=== PATIENT | male | born 1945 | race Caucasian/White ===

== ENCOUNTER 2022-01-09 14:40 | Observation (INO) | payer OTHER ==
[~2022-01-09] VITALS: Ht 177.8 cm; Wt 124.4 kg
[2022-01-09 15:47] LABS: BASOPHILS ABSOLUTE AUTO 0.04 K/mm3 (0.00-0.23); BASOPHILS PERCENT AUTO 0 % (0-2); EOSINOPHILS ABSOLUTE AUTO 0.17 K/mm3 (0.00-0.68); EOSINOPHILS PERCENT AUTO 1 % (0-6); Hematocrit 44.5 % (37.0-53.0); Hemoglobin 14.9 g/dL (13.5-17.5); IMMATURE GRAN ABSOLUTE AUTO 0.06 K/mm3 (0.00-0.10); IMMATURE GRAN PERCENT AUTO 1 % (0-1); LYMPHOCYTES ABSOLUTE AUTO 1.08 K/mm3 (0.84-5.20); LYMPHOCYTES PERCENT AUTO 8 % (21-46); MONOCYTES ABSOLUTE AUTO 0.74 K/mm3 (0.16-1.47); MONOCYTES PERCENT AUTO 6 % (4-13); Mean Corpuscular HGB 28.9 pg (26.0-34.0); Mean Corpuscular HGB Conc 33.5 g/dL (31.5-36.5); Mean Corpuscular Volume 86 fL (80-100); Mean Platelet Volume 10.1 fL (9.1-12.4); NEUTROPHILS ABSOLUTE AUTO 11.12 K/mm3 (1.96-9.15); NEUTROPHILS PERCENT AUTO 84 % (41-73); Platelet Count 179 K/mm3 (150-400); RDW Coefficient Variation 13.2 % (11.7-14.2); RDW Standard Deviation 41.3 fL (35.1-46.3); Red Blood Cell Count 5.16 M/mm3 (4.30-5.90); White Blood Cell Count 13.21 K/mm3 (4.00-11.30)
[2022-01-09 16:10] LABS: Albumin, Blood 3.6 g/dL (3.4-5.0); Bilirubin, Total 0.4 mg/dL (0.1-1.0); Bun/Creatinine Ratio 23.5 (12.0-20.0); Calcium, Blood 9.2 mg/dL (8.5-10.1); Creatinine, Blood 0.72 mg/dL (0.60-1.20); Globulin, Blood 3.6 g/dL (2.2-4.0); Potassium, Blood 4.5 mmol/L (3.5-5.5); Total Protein, Blood 7.2 g/dL (6.4-8.2)
[2022-01-09 16:18] LABS: CHOL/HDL RATIO 3.4; Cholesterol 165 mg/dL (50-200); HDL Cholesterol 48 mg/dL (>39); LDL/HDL RATIO 2.1; Low Density Lipoprotein Chol 102 mg/dL (0-110); Triglycerides 73 mg/dL (30-160); Very Low Density Lipoprot Chol 14 mg/dL (6-32)
--- NOTE | 2022-01-09 17:35 | NUR ---
Pt arrived to [address] via gurney, able to stand and tx to bed indep, he denies the chest pressure at this time, but states he is sob, currently on 3 liters 02 via n/c, resp even and unlabore, no cough noted, hrr, murumur noted, tele in place running sr, no edema noted, ppp+1, cap refill <3sec, vs stable, afebrile, iv site is s.l. clear and patent, btx4, abd round soft nontender, voids without diff, skin c/w/d, majero, abril, oriented to room layout and call system, call light in reach.
[2022-01-10 05:22] LABS: BASOPHILS ABSOLUTE AUTO 0.05 K/mm3 (0.00-0.23); BASOPHILS PERCENT AUTO 0 % (0-2); EOSINOPHILS ABSOLUTE AUTO 0.08 K/mm3 (0.00-0.68); EOSINOPHILS PERCENT AUTO 1 % (0-6); Hematocrit 43.6 % (37.0-53.0); IMMATURE GRAN ABSOLUTE AUTO 0.04 K/mm3 (0.00-0.10); IMMATURE GRAN PERCENT AUTO 0 % (0-1); LYMPHOCYTES ABSOLUTE AUTO 1.55 K/mm3 (0.84-5.20); LYMPHOCYTES PERCENT AUTO 13 % (21-46); MONOCYTES ABSOLUTE AUTO 1.06 K/mm3 (0.16-1.47); MONOCYTES PERCENT AUTO 9 % (4-13); Mean Corpuscular HGB 28.3 pg (26.0-34.0); Mean Corpuscular HGB Conc 32.1 g/dL (31.5-36.5); Mean Corpuscular Volume 88 fL (80-100); Mean Platelet Volume 10.1 fL (9.1-12.4); NEUTROPHILS ABSOLUTE AUTO 8.83 K/mm3 (1.96-9.15); NEUTROPHILS PERCENT AUTO 76 % (41-73); Platelet Count 171 K/mm3 (150-400); RDW Coefficient Variation 13.2 % (11.7-14.2); RDW Standard Deviation 42.6 fL (35.1-46.3); Red Blood Cell Count 4.94 M/mm3 (4.30-5.90); White Blood Cell Count 11.61 K/mm3 (4.00-11.30)
[2022-01-10 05:45] LABS: Albumin, Blood 3.3 g/dL (3.4-5.0); Albumin/Globulin Ratio 0.9 (0.8-1.8); Bilirubin, Total 0.9 mg/dL (0.1-1.0); Bun/Creatinine Ratio 20.2 (12.0-20.0); Calcium, Blood 8.7 mg/dL (8.5-10.1); Creatinine, Blood 0.64 mg/dL (0.60-1.20); Globulin, Blood 3.5 g/dL (2.2-4.0); Magnesium, Blood 1.7 mg/dL (1.6-2.4); Potassium, Blood 3.8 mmol/L (3.5-5.5); Total Protein, Blood 6.8 g/dL (6.4-8.2)
--- NOTE | 2022-01-10 07:40 | NUR ---
PT TROPONIN 134 FROM 141, PT TO HAVE TROPONIN WITH MORNING LABS. 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 PT ALSO REPORTED THAT CP HAD COMPLETELY RESOLVED AND HIS SOB HAD IMPROVED. STATES IT IS WORSE WITH ACITIVITY. PT HAD 1 DOSE OF LABETOLOL AND AFTERWARDS BP GREATLY IMPROVED. CT NEGATIVE FOR PE AND PT GREATLY RELIVED. PT OFF OXYGEN SATS 93-95. NO NEW COMPLAINS OVERNIGHT.
--- NOTE | 2022-01-10 08:18 | NUR ---
pt sitting on the side of the bed awake a/ox3, pleasant and cooperative with care, denies pain, states he didn't sleep as the bed isn't comfortable, breathing easier, on r/a this am, denies sob, lungs are clear t/o, resp even and unlabored, no cough noted, hrr, tele in place running sr per montior, see strip, loud murmur noted, no edema noted, ppp +1, cap refill <3sec, vs stable, afebrile, iv site to lac s.l. site is clear and patent, btx4, abd round soft nontender, voids without diff, skin c/w/d, maew, abril, call light in reach.
[2022-01-10] MEDS ORDERED: ZESTRIL40 M1 PO (10:09)
[2022-01-10] MEDS ORDERED: METF500 PO (10:10)
[2022-01-10] MEDS ORDERED: METO25 PO (10:10)
[2022-01-10] MEDS ORDERED: AMLO5 PO (14:37)
--- NOTE | 2022-01-10 15:15 | NUR ---
pt has been discharged to home, went over discharge instructions with him, he verbalized understanding, encouraged him to purchase of b/p cuff and take his pressure every morning before meds, and to take his blood glucose daily, and change his diet, iv removed intact, left via ambulation with in attendence and all his belongings.
== END 2022-01-10 14:59 | disposition home or self-care (01) ==
LOC: ER 14:40 → MEDS 14:41
PROVIDERS: Physician Assistant; ADMIT Internal Medicine
DX: I16.1 Hypertensive emergency (principal); I11.9 Hypertensive heart disease without heart failure; E11.9 Type 2 diabetes mellitus without complications; R77.8 Other specified abnormalities of plasma proteins; I35.0 Nonrheumatic aortic (valve) stenosis; K76.0 Fatty (change of) liver, not elsewhere classified; I71.9 Aortic aneurysm of unspecified site, without rupture; E78.5 Hyperlipidemia, unspecified; E66.01 Morbid (severe) obesity due to excess calories; Z68.41 Body mass index [BMI] 40.0-44.9, adult; Z87.891 Personal history of nicotine dependence
CPT/HCPCS: 36415; 71045; 71260; 80053; 80061; 83036; 83520; 83735; 83880; 84484; 85025; 93005; 93010; 96361; 96374; 99285-25; A9270; G0378; J7040; Q9967

== ENCOUNTER → 2022-01-09 | Outpatient (CLI) | payer OTHER ==
[~2022-01-09] MED LIST: AMLO5 PO; METF500 PO; METO25 PO; ZESTRIL40 M1 PO
[2022-01-09 13:54] LABS: BASOPHILS ABSOLUTE AUTO 0.05 K/mm3 (0.00-0.23); BASOPHILS PERCENT AUTO 1 % (0-2); EOSINOPHILS PERCENT AUTO 3 % (0-6); Hematocrit 43.9 % (37.0-53.0); Hemoglobin 14.5 g/dL (13.5-17.5); IMMATURE GRAN ABSOLUTE AUTO 0.04 K/mm3 (0.00-0.10); IMMATURE GRAN PERCENT AUTO 0 % (0-1); LYMPHOCYTES ABSOLUTE AUTO 1.13 K/mm3 (0.84-5.20); LYMPHOCYTES PERCENT AUTO 11 % (21-46); MONOCYTES PERCENT AUTO 5 % (4-13); Mean Corpuscular HGB 29.1 pg (26.0-34.0); Mean Corpuscular Volume 88 fL (80-100); Mean Platelet Volume 9.9 fL (9.1-12.4); NEUTROPHILS ABSOLUTE AUTO 7.87 K/mm3 (1.96-9.15); NEUTROPHILS PERCENT AUTO 80 % (41-73); Platelet Count 175 K/mm3 (150-400); RDW Coefficient Variation 13.4 % (11.7-14.2); RDW Standard Deviation 43.2 fL (35.1-46.3); Red Blood Cell Count 4.98 M/mm3 (4.30-5.90); White Blood Cell Count 9.89 K/mm3 (4.00-11.30)
[2022-01-09 14:11] LABS: Albumin, Blood 3.5 g/dL (3.4-5.0); Bilirubin, Total 0.3 mg/dL (0.1-1.0); Bun/Creatinine Ratio 14.2 (12.0-20.0); Calcium, Blood 8.8 mg/dL (8.5-10.1); Creatinine, Blood 1.06 mg/dL (0.60-1.20); Free Thyroxine 0.98 ng/dL (0.70-1.60); Globulin, Blood 3.5 g/dL (2.2-4.0); Potassium, Blood 4.8 mmol/L (3.5-5.5); Thyroid Stimulating Hormone 1.332 uIU/mL (0.360-4.800)
== END ==
LOC: LAB SHORT 13:45
PROVIDERS: General Practice
DX: R07.9 Chest pain, unspecified (principal); R53.81 Other malaise
CPT/HCPCS: 80053; 82550; 83880; 84439; 84443; 84484; 85025; 85379

== ENCOUNTER 2023-01-31 09:07 | Day surgery (SDC) | payer MEDICARE ==
[~2023-01-31] VITALS: Ht 177.8 cm; Wt 126.1 kg
[2023-01-31] VITALS (11 sets, daily range): BP systolic 99–167; BP diastolic 48–98
[~2023-01-31 09:07] MED LIST changes: +ATOR20 PO; +PIOG30 PO; +PRED20 PO
--- NOTE | 2023-01-31 09:54 | NUR ---
DR TOVAR AT BEDSIDE TO TALK WITH PATIENT PRE PROCEDURE. IV STARTED, PT. VSS AT THIS TIME. 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
--- NOTE | 2023-01-31 10:15 | NUR ---
PATIENT AWAITING PROCEDURE. AT BEDSIDE. CALL LIGHT IN REACH.
--- NOTE | 2023-01-31 12:05 | NUR ---
PT RETURNS FROM WELFARE MANAGER AT THIS TIME, 14 CC OF AIR IN TR BAND, SITE SOFT AND NON TENDER. PT. VSS AT THIS TIME, NS CONTINUES FOR A TOTAL OF 500ML PER DR. ORDER. PT. DENIES ANY CHEST PAIN AT THIS TIME. NO INTERVENTIONS. PT. ASSISTED WITH LUNCH TRAY.
--- NOTE | 2023-01-31 13:45 | NUR ---
TR BAND DEFLATION INITIATED, NO HEMATOMA AT THIS TIME, NO BLEEDING NOTED.
--- NOTE | 2023-01-31 15:00 | NUR ---
PT TR BAND DEFLATED W/O DIFFICULTY, CLEAR OCCLUSIVE DRESSING IN PLACE, NO HEMATOMA, NO SWELLING. PT. GIVEN ARM BOARD AND PLACED IN SLING. PT. VSS UPON DISCHARGE, ALL INSTRUCTIONS REVIEWED WITH PT AND , WITH NO FURTHER QUESTIONS. ALL BELONGINGS TAKEN WITH PT, ASSISTED PT TO FRONT DOOR WITH WHEELCHAIR, PT TO DRIVE PT HOME.
== END 2023-01-31 18:00 | disposition home or self-care (01) ==
LOC: MHTC 09:07
DX: Z01.810 Encounter for preprocedural cardiovascular examination (principal); I25.10 Atherosclerotic heart disease of native coronary artery without angina pectoris; I25.84 Coronary atherosclerosis due to calcified coronary lesion; I35.0 Nonrheumatic aortic (valve) stenosis; I77.819 Aortic ectasia, unspecified site; I10 Essential (primary) hypertension; E11.51 Type 2 diabetes mellitus with diabetic peripheral angiopathy without gangrene; E78.5 Hyperlipidemia, unspecified; Z91.041 Radiographic dye allergy status; Z79.84 Long term (current) use of oral hypoglycemic drugs; Z79.899 Other long term (current) drug therapy
CPT/HCPCS: 76937; 82947; 93454; 99152; C1769; C1887; C1894; J1644; J2250; J3010; J7030; J7050; Q9967

== ENCOUNTER → 2023-11-06 | Outpatient (CLI) | payer MEDICARE ==
[2023-11-07 14:01] LABS: Stool Occult Bld Immuno 1 Positive (NEGATIVE)
== END | disposition home or self-care (01) ==
LOC: LAB SHORT 10:50 → LAB 10:50 → LAB SHORT 11-07 10:50
PROVIDERS: Family Medicine
DX: E61.1 Iron deficiency (principal)
CPT/HCPCS: G0328